=== PATIENT | female | born 1965 | race Caucasian/White ===

== ENCOUNTER → 2021-11-02 | Outpatient (CLI) | payer OTHER ==
[~2021-11-02] MED LIST: CETI10TA16 PO; TIZA-75 PO
--- NOTE | 2021-11-02 16:08 | PDOC1 ---
INITIAL PAIN CONSULT DATE OF SERVICE: DOS: DATE: 11/02/21 TIME: 16:02 CHIEF COMPLAINT: Chief Complaint: Low back and left posterior hip pain HISTORY OF PRESENT ILLNESS: 56-year-old female presents with history of pain low back and left hip region for about 3 years not result of any specific injury or accident that she is aware but thin getting worse with prolonged sitting over the past 1 year specially patient reports is getting worse in the posterior aspect of the hip as well as low back with some radiation to the lower extremity only on the left lower leg lateral aspect but not into the thigh patient reports its worse on the back and some on the side of the hip as well on the left side only right side is nontender patient reports is worse with walking and standing changing positions but worse with sitting for prolonged periods greater than about 15 to 20 minutes patient reports it wakes her from sleep about once a night if she lays on her left side does not affect her bowel bladder control does affect her ability to walk is not use any assistive devices to ambulate however. Patient is been taking tizanidine which helps her sleep but not decrease the pain also oral ibuprofen which helps decrease by about 30% patient has had chiropractic treatment as well as doing exercise and continues to the exercise now has had physical therapy in the past but nothing recently. Patient reports her disability rating 0-10 10 being worst is a 10 with sexual behavior 9 with family home responsibilities 5 with recreation 6 occupational activities 0 self-care for life support activities and a 4 with sleeping. Patient reports she had x- ray imaging of the pelvis and lumbar spine showing degenerative changes as well as arthritic changes in the sacroiliac joints. Patient reports no loss of motor function no bowel or bladder incontinence. PAST MEDICAL HISTORY: PMH: Breast cancer left status post radiation, cigarette smoking quit 23 years ago PREVIOUS SURGERIES: Past Surgical Hx: Left lumpectomy and lymph node dissection, sternal reconstruction at age 1 and age 1 for pectus excavatum CURRENT MEDICATIONS: Current Meds: Active Scripts Medications Dose Route/Sig Max Daily Dose Days Date Category Cetirizine Hcl 10 Mg Tablet 1 Tab PO DAILY 11/02/21 Reported Tizanidine Hcl 4 Mg Tablet 2 Mg PO HS PRN 11/02/21 Reported ALLERGIES; Allergies: Coded Allergies: erythromycin base (Verified Adverse Reaction, Intermediate, vomiting, 11/01/21) FAMILY HISTORY: Family Hx: Heart disease, diabetes SOCIAL HISTORY: Social Hx: Patient drinks 2 glasses of wine 3 times a week quit smoking many years ago does not use any illegal illicit or recreational drugs is single has 1 child living at home lives locally in [facility] [place] works as a cashier receptionist at a local store. REVIEW OF SYSTEMS: ROS: Positive for those items mentioned in history of present illness, all systems are reviewed, otherwise negative ,and are complete full and well-documented on patient's chart. PHYSICAL EXAM: VS: Blood pressure is 129/80 pulse 76 respiration 16 temperature 98.1 F height is 5 foot 1 his weight is 143 pounds. PE: PHYSICAL EXAMINATION: GENERAL: The patient is awake, alert, oriented, appropriate, very pleasant in demeanor HEENT: Shows normocephalic, atraumatic. Extraocular movements are intact and symmetrical. Oral cavity: Mucous membranes moist and pink. Dentition is intact. NECK: Shows anterior throat supple without palpable lymphadenopathy noted. Swallow reflex symmetrical. CHEST: Shows normal on inspection. Breath sounds are clear bilaterally, no rales rhonchi or wheezes auscultated. HEART: Shows S1, S2 clear. No murmurs auscultated. ABDOMEN: Soft, nontender, nondistended. No palpable organomegaly is noted. BACK: Shows spine grossly in the midline. Normal-appearing cervical lordotic curvature. There is slightly increased thoracic kyphosis, some minor flattening of the lumbar lordotic curvature. Lumbar paraspinous muscles show symmetrical on inspection, on palpation shows some moderate tenderness diffusely throughout the upper, middle and lower distribution of the paraspinous muscles bilaterally and also into the lower thoracic paraspinous musculature, firm and tender, but without specific trigger points, without radiation of pain. The patient has good rotational motion of the lumbar spine, both laterally as well as extension and flexion without significant difficulty. Significant tenderness over the left posterior superior iliac spine as well as the superior aspect of the sacroiliac joint nontender on the right. EXTREMITIES: Lower extremities show deep tendon reflexes 2+ in the patellar and tendo calcaneus tendons. Motor exam is 5 on a scale of 5 with right devin siflexion, extension, quadriceps and hamstring flexion and 5/5 on the left. Peripheral pulses are 1+ posterior tibial. No peripheral edema is noted bilaterally. Lower extremities are warm and dry to touch, equal in color and appearance. Straight leg raise noted to be negative bilaterally. Gaenslen's and Johny's maneuvers are positive on the left only negative on the right. Johny's maneuver is positive on the left only as well as is compression test of the sacroiliac joint positive on the left with significant tenderness in the sacroiliac region but negative on the right. SKIN: Shows warm and dry, good turgor. No edema. No sores, rashes or bruising throughout. IMPRESSION: Impression: 56-year-old female with proximate 3-year history low back and left hip posterior hip pain consistent with left sacroiliitis Lumbar degenerative disc disease per plain films History of breast cancer Plan: Options discussed with patient. Continue physical therapies medical management and interventional techniques. As patient is currently doing physical therapies and exercise to like to pursue interventional techniques. We discussed a left sacroiliac joint injection using descriptions as well as anatomical models to describe the procedure. Patient will wait for preauthorization with return provider, once obtained we will have her return for left-sided sacroiliac joint injection with fluoroscopic guidance. In the meantime patient continue with stretching strength exercises as well as oral analgesics as currently. EVA GASPAR MD Nov 02, 2021 16:08
== END | disposition home or self-care (01) ==
LOC: PNCL 14:20
PROVIDERS: ATTEND Anesthesiology
DX: M54.50 Low back pain, unspecified (principal); M25.552 Pain in left hip; Z87.891 Personal history of nicotine dependence; Z85.3 Personal history of malignant neoplasm of breast; Z79.899 Other long term (current) drug therapy; Z98.890 Other specified postprocedural states; Z88.1 Allergy status to other antibiotic agents; Z82.49 Family history of ischemic heart disease and other diseases of the circulatory system; Z83.3 Family history of diabetes mellitus
CPT/HCPCS: 99214; G0463

== ENCOUNTER → 2021-11-16 | Outpatient (CLI) | payer OTHER ==
[~2021-11-16] MED LIST changes: +BUPIVACAINE MPF 0.25% 10 ML VIAL. ONE; +DEXAMETHASONE PRES.FREE 10 MG/ML VIAL. ONE; +IOHEXOL 180 MG/ML 10 ML VIAL. ONE
--- NOTE | 2021-11-16 10:39 | PDOC ---
Progress Note - Pain Clinic Date of Service: DOS: DATE: 11/16/21 TIME: 10:35 Diagnosis: Dx: Left sacroiliitis Lumbar degenerative disc disease History or Present Illness: HPI: 56-year-old female returns for follow-up status post initial evaluation with complaints of pain in the left posterior hip consistent with sacroiliitis patient reports her pain is still significant rated 8 on scale 10 is worst 6 on average 5 its least is a 5 today worse with standing walking changing position especially getting up from a seated position and for prolonged sitting patient reports is been waking her from sleep lately with some pain on the right side but near the rib margin which seems unassociated with the left hip. Patient scribes pain is aching and constant in the left posterior hip without significant radiation into the hip or thigh but some mild pain that is on the lateral calf on the left side occasionally. Patient reports wakes her from sleep about once a night the most. Patient reports no loss of motor function no bowel or bladder incontinence as noted. Physical Exam: VS: Blood pressure is 110/54 pulse 80 respirations 16 temperature 98.2 F weight is 144 pounds. PE: PHYSICAL EXAMINATION: GENERAL: The patient is awake, alert, oriented, appropriate, very pleasant in demeanor HEENT: Shows normocephalic, atraumatic. Extraocular movements are intact and symmetrical. Oral cavity: Mucous membranes moist and pink. Dentition is intact. NECK: Shows anterior throat supple without palpable lymphadenopathy noted. Swallow reflex symmetrical. CHEST: Shows normal on inspection. Breath sounds are clear bilaterally. HEART: Shows S1, S2 clear. No murmurs auscultated. ABDOMEN: Soft, nontender, nondistended. No palpable organomegaly is noted. BACK: Shows spine grossly in the midline. Normal-appearing cervical lordotic curvature. There is mildly increased thoracic kyphosis, some minor flattening of the lumbar lordotic curvature. Lumbar paraspinous muscles show symmetrical on inspection, on palpation shows some moderate tenderness diffusely throughout the upper, middle and lower distribution of the paraspinous muscles, but without specific trigger points, without radiation of pain. The patient has good rotational motion of the lumbar spine, both laterally as well as extension and flexion without significant difficulty. Palpation of the posterior superior leg spine the left shows significant tenderness as well as the superior aspect of the left sacroiliac region, right side is only minimally tender with palpation. EXTREMITIES: Lower extremities show deep tendon reflexes 2+ in the patellar and tendo calcaneus tendons. Motor exam is 5 on a scale of 5 with right dorsiflexion, extension, quadriceps and hamstring flexion and 4/5 on the left. Peripheral pulses are 1+ posterior tibial. No peripheral edema is noted bilaterally. Lower extremities are warm and dry to touch, equal in color and appearance. SKIN: Shows warm and dry, good turgor. No edema. No sores, rashes or bruising throughout. Procedure: Procedure: Options were discussed with the patient. Patient chart reviews her current medication regimen updated her review of systems updated today as well. We will proceed with a left-sided sacroiliac joint injection today with fluoroscopic guidance. Risk were discussed including but not limited to bleeding infection possibility of intravascular injection with sequelae, local spread of local anesthetic and numbness, side effects steroid medication, exposure fluoroscopy and poor results regarding pain control. Patient understands wished to proceed. Patient will return to the clinic in approximately 2 weeks for follow-up, was counseled as to return appointment, activity level, and side effect to be aware of. Medication Injected: Med Injected: Under sterile prep and drape using C-arm fluoroscopic guidance, left sacroiliac joint injected using 3 cc 0.25% bupivacaine + 10 mg dexamethasone +2 cc contrast. Condition at discharge is stable, patient tolerated procedure well and had no complications. Condition at Discharge: Condition at Discharge: Condition at discharge stable, patient tolerated the procedure well and had no complications. EVA GASPAR MD Nov 16, 2021 10:39
--- NOTE | 2021-11-16 10:39 | PDOC4 ---
Procedure Note: ICD 10 Code: ICD 10 Code: M4 6.1 Procedure Note: Patient was consented for left sacroiliac joint injection with fluoroscopic guidance. Risk were discussed including but not limited to bleeding infection possibility of intravascular injection and sequelae spread of local anesthetic and numbness side effects of steroid medication exposure fluoroscopy and portals regarding pain control. Patient understands wished to proceed. Under sterile prep and drape using C-arm fluoroscopic guidance, left sacroiliac joint injected using 3 cc 0.25% bupivacaine + 10 mg dexamethasone +2 cc contrast. Condition at discharge is stable, patient tolerated procedure well and had no complications. EVA GASPAR MD Nov 16, 2021 10:39
== END | disposition home or self-care (01) ==
LOC: PNCL 10:09
PROVIDERS: ATTEND Anesthesiology
DX: M46.1 Sacroiliitis, not elsewhere classified (principal); M51.36 Other intervertebral disc degeneration, lumbar region; Z79.899 Other long term (current) drug therapy; Z88.1 Allergy status to other antibiotic agents
CPT/HCPCS: G0260; J1100; J3490; Q9965; 27096